=== PATIENT | female | born 1970 | race Caucasian/White ===

== ENCOUNTER 2020-05-09 16:23 | Emergency (ER) | payer OTHER, SELFPAY ==
[2020-05-09] VITALS (15 sets, daily range): BP systolic 105–133; BP diastolic 56–74; PULSE 46–57; RESP 13–30; TEMP 36.7; O2SAT 97–100; BMI 24.2
--- NOTE | 2020-05-09 16:33 | DI.RAD.S_ITS ---
PROCEDURE: XR CHEST 1V INDICATIONS: chest pain TECHNIQUE: One view of the chest was acquired. COMPARISON: None. FINDINGS: Surgical changes and devices: None. Lungs and pleura: Lungs are clear. No pleural effusions or pneumothorax. Mediastinum: Mediastinal contours appear normal. Heart size is normal. Bones and chest wall: No suspicious bony lesions. Overlying soft tissues appear unremarkable. IMPRESSION: No acute cardio pulmonary pathology. Dictated by: Trace Maguire M.D. on 05/09/2020 at 17:26 Approved by: Trace Maguire M.D. on 05/09/2020 at 17:32
[2020-05-09 17:08] LABS: Add Manual Diff / Slide Review NO; Basophils Absolute Auto 0 /uL (0-100); Basophils Percent Auto 0.7 % (0-2); Eosinophils Absolute Auto 200 /uL (0-450); Eosinophils Percent Auto 3.1 % (2-4); Hematocrit 36.9 % (36-46); Hemoglobin 12.6 g/dL (12.0-16.0); Lymphocytes Absolute Auto 1600 /uL (1100-4500); Mean Corpuscular HGB Conc 34.2 % (30-36); Mean Corpuscular Hemoglobin 30.2 PG (26-34); Mean Corpuscular Volume 88.3 fL (80-100); Monocytes Absolute Auto 500 /uL (0-900); Monocytes Percent Auto 8.1 % (3-14); Neutrophils Absolute Auto 3600 /uL (1500-7000); Neutrophils Percent Auto 61.1 % (50-75); Platelet Count 199 X10^3/uL (150-400); Red Blood Cell Count 4.19 X10^6/uL (4.0-5.2); Red Cell Distribution Width 12.6 % (11.6-14.8); White Blood Cell Count 5.8 X10^3/uL (4.5-11.0)
[2020-05-09 17:18] LABS: INR 0.9 (0.9-1.3); Prothrombin Time 10.9 SECONDS (10.1-12.7)
--- NOTE | 2020-05-09 17:18 | PC.NURSE ---
-Ptient reports left axillary pain when she experienced palpitations. Denies SOB, dizziness or chest pain.
[2020-05-09 17:21] LABS: PTT Partial Thromboplastin Tim 29 SECONDS (26.4-36.2)
[2020-05-09 17:23] LABS: Alanine Aminotransferase 15 IU/L (<35); Albumin 4.4 g/dL (3.5-5.0); Albumin Globulin Ratio 1.8 (1.0-2.8); Alkaline Phosphatase 59 U/L (38-126); Aspartate Aminotransferase 24 IU/L (14-36); BUN Creatinine Ratio 33.3 (6-22); Bilirubin Total 0.4 mg/dL (0.2-1.3); Blood Urea Nitrogen 29 mg/dL (7-17); Calcium 9.5 mg/dL (8.4-10.2); Carbon Dioxide 31 mmol/L (22-32); Chloride 101 mmol/L (98-107); Creatine Kinase 46 U/L (30-135); Estimated Glomerular Filt Rate > 60.0 mL/min (>60); Globulin 2.5 g/dL (1.7-4.1); Glucose 96 mg/dL (70-100); HEMOLYSIS < 15 (0-50); Lipase 97 U/L (23-300); Potassium 4.1 mmol/L (3.4-5.1); Sodium 137 mmol/L (137-145); Total Protein 6.9 g/dL (6.3-8.2)
[2020-05-09 17:24] LABS: Magnesium 2.2 mg/dL (1.6-2.3)
[2020-05-09 17:35] LABS: Troponin I < 0.012 ng/mL (0.01-0.034)
[2020-05-09] MEDS: SODIUM CHLORIDE 0.9% 1,000 ML 1000 ML IV (17:41)
[2020-05-09 19:40] LABS: Creatine Kinase 39 U/L (30-135)
[2020-05-09 19:53] LABS: Troponin I < 0.012 ng/mL (0.01-0.034)
--- NOTE | 2020-05-09 20:04 | ED.ARRPALP ---
HPI - Arrhythmia/Palpitations <JONATHAN Michael - Last Filed: 05/09/20 20:16> General Chief Complaint: Arrhythmia/Palpitations Stated Complaint: HEART PALPITATIONS Time Seen by Provider: 05/09/20 16:38 Source: patient Mode of arrival: Ambulatory Limitations: no limitations History of Present Illness HPI narrative: The patient is a 49-year-old female nonsmoker who denies pertinent medical history presents with a chief complaint of palpitations. She states she had a few episodes of palpitations today. She denies any chest pain, shortness of breath, radiation of any pain, denies any pain on my interview. She denies any lightheadedness dizziness, sweating. She denies any personal cardiac history but does endorse a family history of cardiac disease. She does not take any medications every day. She states overall she is ?healthy as a horse.She states she feels fluttering in the left side of her chest. She states she feels as though she can ?see it at times. Related Data Home Medications Medication Instructions Recorded Confirmed No Known Home Medications 06/22/18 06/22/18 Allergies Allergy/AdvReac Type Severity Reaction Status Date / Time No Known Drug Allergies Allergy Verified 05/09/20 16:32 Review of Systems <JONATHAN Michael - Last Filed: 05/09/20 20:16> Review of Systems Narrative: GENERAL: Denies chills, fatigue, malaise, fever, sweats. HEENT: Denies sinus pain, ear pain, sore throat, difficulty swallowing, dizziness. RESPIRATORY: Denies dyspnea, cough, wheezing, hemoptysis, sputum. CARDIOVASCULAR: See HPI GASTROINTESTINAL: Denies nausea, vomiting, abdominal pain, diarrhea, constipation, melena. : Denies dysuria, frequency, incontinence, hematuria, urinary retention. MUSCULOSKELETAL: denies weakness, joint pain, or bony pain SKIN: Denies rash, skin lesions, or other NEUROLOGIC: Denies weakness, headache, numbness, change in speech, confusion, seizures, incoordination. PSYCHIATRIC: No concerning psychosocial issues. 12 point review of systems is negative except for those stated above Patient History <JONATHAN Michael - Last Filed: 05/09/20 20:16> Social History Smoking Status: Never smoker Smoking Status: Never smoker alcohol intake frequency: a few times a month Substance Use Type: does not use Exam <JONATHAN Michael - Last Filed: 05/09/20 20:16> Narrative Exam Narrative: GENERAL: This is a well-nourished, well-developed patient, in no acute distress HEAD: Atraumatic. Normocephalic. No temporal or scalp tenderness. EYES: Pupils equal round and reactive. Extraocular motions intact. No scleral icterus. No injection or drainage. ENT: Nose without bleeding, purulent drainage or septal hematoma. Airway patent. NECK: Trachea midline. No JVD or lymphadenopathy. Supple, nontender, no meningeal signs. CARDIOVASCULAR: Regular rate and rhythm RESPIRATORY: Clear to auscultation. Breath sounds equal bilaterally. No wheezes, rales, or rhonchi. No cough. No increased respiratory effort. No accessory muscle use. GASTROINTESTINAL: Abdomen soft, non-tender, nondistended. No hepato-splenomegaly, or palpable masses. No guarding. EXTREMITIES: No clubbing, cyanosis, or edema. No joint tenderness, effusion, or edema noted. BACK: Nontender without deformity or crepitance. No flank tenderness. NEURO: AOx3. SKIN: No rash or erythema visible skin Initial Vital Signs Initial Vital Signs: Vital Signs Temperature 98.1 F 05/09/20 16:30 Pulse Rate 57 L 05/09/20 16:30 Respiratory Rate 16 05/09/20 16:30 Blood Pressure 121/62 05/09/20 16:30 Pulse Oximetry 100 05/09/20 16:30 <Mariya Lux DO - Last Filed: 05/10/20 13:24> Initial Vital Signs Initial Vital Signs: Vital Signs Temperature 98.1 F 05/09/20 16:30 Pulse Rate 57 L 05/09/20 16:30 Respiratory Rate 16 05/09/20 16:30 Blood Pressure 121/62 05/09/20 16:30 Pulse Oximetry 100 05/09/20 16:30 Scores <JONATHAN Michael - Last Filed: 05/09/20 20:16> GCS [place] coma scale eye opening: Spontaneous [place] coma scale verbal response: Orientated Devin coma scale motor response: Obey commands Devin coma scale total score: 15 Course <Asia ArcosANGÉLICA alfordP-BC - Last Filed: 05/09/20 20:16> Orders Ordered: Discontinued Medications Sodium Chloride (Normal Saline 0.9%) 1,000 mls @ 1,000 mls/hr IV BOLUS ONE Stop: 05/09/20 18:28 Last Infusion: 05/09/20 19:05 Dose: 0 mls/hr Documented by: Admin: 05/09/20 17:41 Dose: 1,000 mls/hr Documented by: SWATHI Vital Signs Vital signs: Vital Signs - 8 hr 05/09/20 16:30 05/09/20 17:00 05/09/20 17:15 Temperature 98.1 F Pulse Rate 57 L 53 L 50 L Respiratory Rate 16 18 15 Blood Pressure 121/62 105/56 L Pulse Oximetry 100 100 100 05/09/20 17:30 05/09/20 17:43 05/09/20 18:00 Temperature Pulse Rate 48 L 56 L 52 L Respiratory Rate 17 13 22 Blood Pressure 108/69 110/67 Pulse Oximetry 100 100 100 05/09/20 18:30 05/09/20 18:45 05/09/20 19:00 Temperature Pulse Rate 46 L 52 L 48 L Respiratory Rate 14 30 H 17 Blood Pressure 118/73 Pulse Oximetry 100 100 100 05/09/20 19:10 05/09/20 19:20 05/09/20 19:30 Temperature Pulse Rate 51 L 50 L 51 L Respiratory Rate 22 22 19 Blood Pressure Pulse Oximetry 97 100 100 05/09/20 19:31 05/09/20 19:40 Temperature Pulse Rate 52 L 49 L Respiratory Rate 24 14 Blood Pressure 112/74 Pulse Oximetry 100 100 <Mariya Lux DO - Last Filed: 05/10/20 13:24> Orders Ordered: Discontinued Medications Sodium Chloride (Normal Saline 0.9%) 1,000 mls @ 1,000 mls/hr IV BOLUS ONE Stop: 05/09/20 18:28 Last Infusion: 05/09/20 19:05 Dose: 0 mls/hr Documented by: Admin: 05/09/20 17:41 Dose: 1,000 mls/hr Documented by: SWATHI Vital Signs Vital signs: Vital Signs - 8 hr 05/09/20 16:30 05/09/20 17:00 05/09/20 17:15 Temperature 98.1 F Pulse Rate 57 L 53 L 50 L Respiratory Rate 16 18 15 Blood Pressure 121/62 105/56 L Pulse Oximetry 100 100 100 05/09/20 17:30 05/09/20 17:43 05/09/20 18:00 Temperature Pulse Rate 48 L 56 L 52 L Respiratory Rate 17 13 22 Blood Pressure 108/69 110/67 Pulse Oximetry 100 100 100 05/09/20 18:30 05/09/20 18:45 05/09/20 19:00 Temperature Pulse Rate 46 L 52 L 48 L Respiratory Rate 14 30 H 17 Blood Pressure 118/73 Pulse Oximetry 100 100 100 05/09/20 19:10 05/09/20 19:20 05/09/20 19:30 Temperature Pulse Rate 51 L 50 L 51 L Respiratory Rate 22 22 19 Blood Pressure Pulse Oximetry 97 100 100 05/09/20 19:31 05/09/20 19:40 Temperature Pulse Rate 52 L 49 L Respiratory Rate 24 14 Blood Pressure 112/74 Pulse Oximetry 100 100 MDM - Arrhythmia/Palpitations <Asia Young, MIRA-BC - Last Filed: 05/09/20 20:16> Lab Data Result diagrams: 05/09/20 17:00 05/09/20 17:00 Labs: Lab Results 05/09/20 05/09/20 05/09/20 Range/Units 17:00 17:00 17:00 WBC 5.8 (4.5-11.0) X10^3/uL RBC 4.19 (4.0-5.2) X10^6/uL Hgb 12.6 (12.0-16.0) g/dL Hct 36.9 (36-46) % MCV 88.3 (80-100) fL MCH 30.2 (26-34) PG MCHC 34.2 (30-36) % RDW 12.6 (11.6-14.8) % Plt Count 199 (150-400) X10^3/uL Neut % (Auto) 61.1 (50-75) % Lymph % (Auto) 27.0 (25-40) % [place] % (Auto) 8.1 (3-14) % Eos % (Auto) 3.1 (2-4) % Baso % (Auto) 0.7 (0-2) % Neut # (Auto) 3600 (2503-0773) /uL Lymph # (Auto) 1600 (7853-4411) /uL [place] # (Auto) 500 (0-900) /uL Eos # (Auto) 200 (0-450) /uL Baso # (Auto) 0 (0-100) /uL PT 10.9 (10.1-12.7) SECONDS INR 0.9 (0.9-1.3) APTT 29 (26.4-36.2) SECONDS Sodium 137 (137-145) mmol/L Potassium 4.1 (3.4-5.1) mmol/L Chloride 101 (98-107) mmol/L Carbon Dioxide 31 (22-32) mmol/L BUN 29 H (7-17) mg/dL Creatinine 0.87 (0.52-1.04) mg/dL Estimated GFR > 60.0 (>60) mL/min BUN/Creatinine Ratio 33.3 H (6-22) Glucose 96 (70-100) mg/dL Calcium 9.5 (8.4-10.2) mg/dL Magnesium (1.6-2.3) mg/dL Total Bilirubin 0.4 (0.2-1.3) mg/dL AST 24 (14-36) IU/L ALT 15 (<35) IU/L Alkaline Phosphatase 59 (38-126) U/L Total Creatine Kinase 46 (30-135) U/L CK-MB (CK-2) TNP CK-MB (CK-2) Rel Index TNP Troponin I < 0.012 (0.01-0.034) ng/mL Total Protein 6.9 (6.3-8.2) g/dL Albumin 4.4 (3.5-5.0) g/dL Globulin 2.5 (1.7-4.1) g/dL Albumin/Globulin Ratio 1.8 (1.0-2.8) Lipase 97 (23-300) U/L 05/09/20 05/09/20 Range/Units 17:00 18:55 WBC (4.5-11.0) X10^3/uL RBC (4.0-5.2) X10^6/uL Hgb (12.0-16.0) g/dL Hct (36-46) % MCV (80-100) fL MCH (26-34) PG MCHC (30-36) % RDW (11.6-14.8) % Plt Count (150-400) X10^3/uL Neut % (Auto) (50-75) % Lymph % (Auto) (25-40) % [place] % (Auto) (3-14) % Eos % (Auto) (2-4) % Baso % (Auto) (0-2) % Neut # (Auto) (5125-1975) /uL Lymph # (Auto) (7949-2980) /uL [place] # (Auto) (0-900) /uL Eos # (Auto) (0-450) /uL Baso # (Auto) (0-100) /uL PT (10.1-12.7) SECONDS INR (0.9-1.3) APTT (26.4-36.2) SECONDS Sodium (137-145) mmol/L Potassium (3.4-5.1) mmol/L Chloride (98-107) mmol/L Carbon Dioxide (22-32) mmol/L BUN (7-17) mg/dL Creatinine (0.52-1.04) mg/dL Estimated GFR (>60) mL/min BUN/Creatinine Ratio (6-22) Glucose (70-100) mg/dL Calcium (8.4-10.2) mg/dL Magnesium 2.2 (1.6-2.3) mg/dL Total Bilirubin (0.2-1.3) mg/dL AST (14-36) IU/L ALT (<35) IU/L Alkaline Phosphatase (38-126) U/L Total Creatine Kinase 39 (30-135) U/L CK-MB (CK-2) TNP CK-MB (CK-2) Rel Index TNP Troponin I < 0.012 (0.01-0.034) ng/mL Total Protein (6.3-8.2) g/dL Albumin (3.5-5.0) g/dL Globulin (1.7-4.1) g/dL Albumin/Globulin Ratio (1.0-2.8) Lipase (23-300) U/L Imaging Data Chest x-ray: Radiologist's [employer]resson: [address] [place] [id number] XRay Report Signed Patient: Yani Argueta CMR#: [id number] : 1970Acct:[id number] Age/Sex: 49 / FDate of Service: 05/09/20 Loc: ED Accession Number: [id number] Procedure: XR chest 1V Ordering Provider: Mariya Lux D.O. PROCEDURE: XR CHEST 1V INDICATIONS: chest pain TECHNIQUE: One view of the chest was acquired. COMPARISON: None. FINDINGS: Surgical changes and devices: None. Lungs and pleura: Lungs are clear. No pleural effusions or pneumothorax. Mediastinum: Mediastinal contours appear normal. Heart size is normal. Bones and chest wall: No suspicious bony lesions. Overlying soft tissues appear unremarkable. IMPRESSION: No acute cardio pulmonary pathology. Dictated by: Trace Maguire M.D. on 05/09/2020 at 17:26 Approved by: Trace Maguire M.D. on 05/09/2020 at 17:32 ECG Data Attestation: I personally reviewed and interpreted this ECG as follows: Interpretation: Sinus rhythm. Ventricular rate 55. P.r. interval 155. QRS 86. Viewed by Dr. Lux MDM Narrative Medical decision making narrative: The patient is a 49-year-old female who presents with a chief complaint of palpitations earlier today. She has a normal sinus rhythm on monitor and has a normal EKG. Troponin is negative, lab work is grossly within normal limits. Repeat troponin is also negative. I discussed at length the importance of following up with provider as outpatient, possibility of a Holter monitor through her PCP. Discussed at length coming back to the emergency department for any acute concerns such as chest pain, shortness of breath, concern of heart attack or stroke. Patient has no questions or concerns upon discharge and states understanding return precautions as well as follow-up care. She has been hemodynamically stable throughout her stay in the emergency department. <Mariya Lux DO - Last Filed: 05/10/20 13:24> Lab Data Labs: Lab Results 05/09/20 05/09/20 05/09/20 Range/Units 17:00 17:00 17:00 WBC 5.8 (4.5-11.0) X10^3/uL RBC 4.19 (4.0-5.2) X10^6/uL Hgb 12.6 (12.0-16.0) g/dL Hct 36.9 (36-46) % MCV 88.3 (80-100) fL MCH 30.2 (26-34) PG MCHC 34.2 (30-36) % RDW 12.6 (11.6-14.8) % Plt Count 199 (150-400) X10^3/uL Neut % (Auto) 61.1 (50-75) % Lymph % (Auto) 27.0 (25-40) % [place] % (Auto) 8.1 (3-14) % Eos % (Auto) 3.1 (2-4) % Baso % (Auto) 0.7 (0-2) % Neut # (Auto) 3600 (8933-3634) /uL Lymph # (Auto) 1600 (3589-6970) /uL [place] # (Auto) 500 (0-900) /uL Eos # (Auto) 200 (0-450) /uL Baso # (Auto) 0 (0-100) /uL PT 10.9 (10.1-12.7) SECONDS INR 0.9 (0.9-1.3) APTT 29 (26.4-36.2) SECONDS Sodium 137 (137-145) mmol/L Potassium 4.1 (3.4-5.1) mmol/L Chloride 101 (98-107) mmol/L Carbon Dioxide 31 (22-32) mmol/L BUN 29 H (7-17) mg/dL Creatinine 0.87 (0.52-1.04) mg/dL Estimated GFR > 60.0 (>60) mL/min BUN/Creatinine Ratio 33.3 H (6-22) Glucose 96 (70-100) mg/dL Calcium 9.5 (8.4-10.2) mg/dL Magnesium (1.6-2.3) mg/dL Total Bilirubin 0.4 (0.2-1.3) mg/dL AST 24 (14-36) IU/L ALT 15 (<35) IU/L Alkaline Phosphatase 59 (38-126) U/L Total Creatine Kinase 46 (30-135) U/L CK-MB (CK-2) TNP CK-MB (CK-2) Rel Index TNP Troponin I < 0.012 (0.01-0.034) ng/mL Total Protein 6.9 (6.3-8.2) g/dL Albumin 4.4 (3.5-5.0) g/dL Globulin 2.5 (1.7-4.1) g/dL Albumin/Globulin Ratio 1.8 (1.0-2.8) Lipase 97 (23-300) U/L 05/09/20 05/09/20 Range/Units 17:00 18:55 WBC (4.5-11.0) X10^3/uL RBC (4.0-5.2) X10^6/uL Hgb (12.0-16.0) g/dL Hct (36-46) % MCV (80-100) fL MCH (26-34) PG MCHC (30-36) % RDW (11.6-14.8) % Plt Count (150-400) X10^3/uL Neut % (Auto) (50-75) % Lymph % (Auto) (25-40) % [place] % (Auto) (3-14) % Eos % (Auto) (2-4) % Baso % (Auto) (0-2) % Neut # (Auto) (9455-4309) /uL Lymph # (Auto) (2498-5213) /uL [place] # (Auto) (0-900) /uL Eos # (Auto) (0-450) /uL Baso # (Auto) (0-100) /uL PT (10.1-12.7) SECONDS INR (0.9-1.3) APTT (26.4-36.2) SECONDS Sodium (137-145) mmol/L Potassium (3.4-5.1) mmol/L Chloride (98-107) mmol/L Carbon Dioxide (22-32) mmol/L BUN (7-17) mg/dL Creatinine (0.52-1.04) mg/dL Estimated GFR (>60) mL/min BUN/Creatinine Ratio (6-22) Glucose (70-100) mg/dL Calcium (8.4-10.2) mg/dL Magnesium 2.2 (1.6-2.3) mg/dL Total Bilirubin (0.2-1.3) mg/dL AST (14-36) IU/L ALT (<35) IU/L Alkaline Phosphatase (38-126) U/L Total Creatine Kinase 39 (30-135) U/L CK-MB (CK-2) TNP CK-MB (CK-2) Rel Index TNP Troponin I < 0.012 (0.01-0.034) ng/mL Total Protein (6.3-8.2) g/dL Albumin (3.5-5.0) g/dL Globulin (1.7-4.1) g/dL Albumin/Globulin Ratio (1.0-2.8) Lipase (23-300) U/L Discharge Plan Departure Patient Disposition: Home Clinical Impression: Palpitations Discharge Date/Time: 05/09/20 20:22 Instructions: DI for Palpitations Activity Restrictions/Additional Instructions: Thank you for trusting us with your care today. Your EKG, chest x-ray of both sides of lab work came back very well. Please follow-up with primary care provider in the next few days. You may benefit from an outpatient Holter monitor. As discussed, please come back to the emergency department for any acute concerns such as concern of heart attack, stroke etcetera Prescriptions: No Action No Known Home Medications RF: 0 Referrals: [email or web address] [Provider Group] <Mariya Lux, - Last Filed: 05/10/20 13:24> [facility] Attending Digna Attestation: I was immediately available in the department for consultation. Documentation has been reviewed. I agree with assessment and plan.
== END 2020-05-09 20:22 | disposition home or self-care (01) ==
PROVIDERS: Emergency Medicine; Emergency Provider Nurse Practitioner Family
DX: R00.2 Palpitations (principal); R07.9 Chest pain, unspecified
CPT/HCPCS: 36415; 71045; 80053; 82550; 83690; 83735; 84484; 85025; 85610; 85730; 93005; 96360; 99284

== ENCOUNTER → 2020-09-14 10:10 | Outpatient (CLI) | payer OTHER, SELFPAY ==
--- NOTE | 2020-09-14 | DI.MG.S_ITS ---
BILATERAL DIGITAL SCREENING MAMMOGRAM 3D/2D WITH CAD: 09/14/2020 CLINICAL: Routine screening. Comparison is made to exams dated: 10/20/2015 mammogram, 09/20/2015 mammogram - [facility], and 02/02/2014 mammogram - [facility]. The tissue of both breasts is heterogeneously dense. This may lower the sensitivity of mammography. Current study was also evaluated with a Computer Aided Detection (CAD) system. No significant masses, calcifications, or other findings are seen in either breast. There has been no significant interval change. IMPRESSION: NEGATIVE There is no mammographic evidence of malignancy. A 1 year screening mammogram is recommended. This exam was interpreted at Station ID: [id number]. NOTE: For mammograms, a report in lay terms will be sent to the patient. Approximately 15% of breast malignancies will not be visualized mammographically. In the management of a palpable breast mass, a negative mammogram must not discourage biopsy of a clinically suspicious lesion. Electronically Signed By: Ned mendoza/jonathan:09/14/2020 13:14:17 letter sent: Normal Exam ACR BI-RADS Category 1: Negative [id number]
== END ==
PROVIDERS: Referring Provider Obstetrics & Gynecology; Visit Provider Obstetrics & Gynecology
DX: Z12.31 Encounter for screening mammogram for malignant neoplasm of breast (principal)
CPT/HCPCS: 77063; 77067